=== PATIENT | male | born 1945 | race Caucasian/White ===

== ENCOUNTER 2019-07-08 11:56 | Day surgery (SDC) | payer OTHER ==
[2019-07-07 08:52] VITALS: BMI 26.7
--- NOTE | 2019-07-08 11:56 | HP ---
History & Physical Update - History History: No Change - Physical Physical: No Change - Assessment Assessment: No Change - Plan Plan: No Change
--- NOTE | 2019-07-08 11:59 | OP ---
Operative Note - Note: Operative Date: 07/08/19 Pre-Operative Diagnosis: L ureteral calculus Operation: L ureteroscopic laser lithotripsy and JJ stent insertion Findings: L ureteral calculus Post-Operative Diagnosis: Same as Pre-op Surgeon: Jacobo Clark Anesthesiologist/MUSHROOM FARMER: David Rome Anesthesia: General Specimens Removed: L ureteral calculus Estimated Blood Loss (mls): 0 Drains & Tubes with Location: 6 fr 26 cm L JJ stent Operative Report Dictated: Yes
[2019-07-08 13:16] VITALS: BP 140/87; PULSE 72; TEMP 97.8
[2019-07-08 13:21] LABS: EPI CELLS 1.5 /HPF (0-5/HPF); HYALINE CASTS 13 /lpf (0-8); URINE APPEARANCE CLOUDY; URINE BACTERIA 4551.1 /hpf (NEGATIVE); URINE BILIRUBIN NEGATIVE (NEGATIVE); URINE COLOR YELLOW; URINE GLUCOSE (UA) NEGATIVE (NEGATIVE); URINE KETONE NEGATIVE (NEGATIVE); URINE LEUK ESTERASE 1+ (NEGATIVE); URINE NITRITE POSITIVE (NEGATIVE); URINE PROTEIN NEGATIVE (NEGATIVE); URINE RBC 1 /hpf (0-4); URINE UROBILINOGEN 0.2 mg/dL (0.2-1.0); URINE WBC 36 /hpf (0-5)
[2019-07-08] MEDS ORDERED: KETOROLAC TROMETHAMINE 30 MG/1 ML VIAL ONE (14:35)
[2019-07-08] MEDS ORDERED: SUCCINYLCHOLINE CHLORIDE 200 MG/10 ML SYRINGE ONE (14:35)
[2019-07-08] MEDS ORDERED: PROPOFOL 20 ML ONE (14:35)
[2019-07-08] MEDS ORDERED: DEXAMETHASONE SOD PHOSPHATE 4 MG/1 ML VIAL ONE (14:35)
[2019-07-08] MEDS ORDERED: LIDOCAINE HCL 2% (20ML MULTI-DOSE VIAL) ONE (14:37)
== END 2019-07-08 16:00 | disposition home or self-care (01) ==
LOC: JASU-SURG 11:56
PROVIDERS: ATTEND Urology
DX: Z53.8 Procedure and treatment not carried out for other reasons (principal)
CPT/HCPCS: 81003; 82962

== ENCOUNTER 2019-07-11 11:27 | Day surgery (SDC) | payer OTHER ==
--- NOTE | 2019-07-11 09:55 | HP ---
History & Physical Update - History History: No Change - Physical Physical: No Change - Assessment Assessment: No Change - Plan Plan: No Change
--- NOTE | 2019-07-11 09:57 | OP ---
Operative Note - Note: Operative Date: 07/11/19 Pre-Operative Diagnosis: L ureteral calculus Operation: cystoscopy L ureteroscopy and JJ stent insertion Findings: L proximal ureteral calculus Post-Operative Diagnosis: Same as Pre-op (passed) Anesthesiologist/BOILER PLANT WORKER: Rupinder Fernandes Anesthesia: General Estimated Blood Loss (mls): 0 Drains & Tubes with Location: 6 fr 26 cm L JJ Operative Report Dictated: Yes
[2019-07-11 12:24] VITALS: BMI 26.7
[2019-07-11] MEDS ORDERED: PROPOFOL 20 ML ONE (13:05)
[2019-07-11] MEDS ORDERED: MIDAZOLAM HCL 2 MG/2 ML SINGLE DOSE VIAL ONE (13:05)
[2019-07-11] MEDS ORDERED: ceFAZolin SODIUM 1 GM VIAL ONE (13:23)
[2019-07-11] MEDS ORDERED: ceFAZolin SODIUM 1 GM VIAL IVPB ONE (13:25)
[2019-07-11] MEDS ORDERED: LIDOCAINE HCL 2% JELLY 10 ML CARTRIDGE ONE (13:48)
[2019-07-11] MEDS ORDERED: LIDOCAINE HCL 2% JELLY 10 ML CARTRIDGE TP ONE (13:48)
[2019-07-11] MEDS ORDERED: DEXAMETHASONE SOD PHOSPHATE 4 MG/1 ML VIAL ONE (13:48)
[2019-07-11] MEDS ORDERED: oxyCODONE HCL 5 MG TABLET PO PRN (14:28)
[2019-07-11] MEDS ORDERED: ONDANSETRON 4 MG/2 ML VIAL IVPUSH PRN (14:28)
[2019-07-11] MEDS ORDERED: LACTATED RINGERS SOLUTION 1,000 ML IV SCH (14:30)
[2019-07-11] MEDS ORDERED: oxyCODONE HCL 5 MG TABLET ONE (16:29)
[2019-07-11 18:10] VITALS: BP 143/80; PULSE 68; TEMP 97.8
--- NOTE | 2019-07-11 23:38 | OP ---
DATE OF OPERATION: 07/11/2019 PREOPERATIVE DIAGNOSIS: Left ureteral calculus. POSTOPERATIVE DIAGNOSIS: Left ureteral calculus (passed). PROCEDURE: Cystoscopy, left ureteroscopy, and Double J stent insertion. SURGEON: Jacobo Ramesh MD. GANG RIDER: None. ANESTHESIA: General via laryngeal mask. ANESTHESIOLOGIST: Rupinder Fernandes MD. SPECIMENS: None. CULTURES: None. DRAINS: 6 Samoan 26-cm left Double J stent. ESTIMATED BLOOD LOSS: None. COMPLICATIONS: None. DESCRIPTION OF PROCEDURE: Patient was brought in the operating room, placed on the operating room table in the supine position. After administration of general anesthesia via laryngeal mask, intravenous antibiotics and sequential compression device were placed. The patient was placed in the dorsal lithotomy position. The genitals and perineum were prepped and draped in usual sterile manner. A 22-Samoan cystoscope was inserted into the bladder under direct vision. The anterior urethra was normal. The prostatic urethra demonstrated moderate BPH. The bladder was entered thoroughly, inspected. There were no foreign bodies, tumors, stones, inflammation. Both ureteral orifices were in the usual location with clear efflux bilaterally. Merchandise Flow Team Member films of the abdomen did not demonstrate any stone. Now the 0.038 guidewire was inserted in the left ureteral orifice, advanced to the level of the left renal pelvis under fluoroscopic and direct visual guidance. Retrograde pyelogram was done, demonstrated no hydronephrosis and no evidence of stone. The semirigid ureteroscope was now inserted alongside the guidewire, all the way to the level of the proximal ureter. No stone was seen. Retrograde pyelogram was done. No stone, no extravasation. There was mild left hydronephrosis. Now the ureteroscope was removed, cystoscope back loaded, and the 6-Samoan 26-cm, left double J stent was inserted over the guidewire under direct visual and fluoroscopic guidance leaving 1 coil in the renal pelvis and 1 coil in the bladder. The entire course of the left ureter was inspected, no stone was seen. He tolerated the procedure well. Some lidocaine 10 mL of 2% was placed per urethra. The was secured to the penis with a suture and a Tegaderm. Tolerated procedure well. Transferred to recovery room in stable condition. He will be followed in the office tomorrow for stent removal. JACOBO RAMESH M.D. [id number]
== END 2019-07-11 17:30 | disposition home or self-care (01) ==
LOC: JASU-SURG 11:27
PROVIDERS: ATTEND Urology
PROC: 0T9780Z Drainage of Left Ureter with Drainage Device, Via Natural or Artificial Opening Endoscopic (ICD-10-PCS; principal; 2019-07-11 13:00)
DX: N20.1 Calculus of ureter (principal)
CPT/HCPCS: 76000-TC-FY; 82962; 94760